=== PATIENT | female | born 1995 | race Two or more races ===

== ENCOUNTER 2018-01-25 05:04 | Emergency (ER) | payer OTHER ==
[~2018-01-25] VITALS: Ht 160 cm; Wt 44.5 kg
--- NOTE | 2018-01-25 05:19 | NUR ---
Pt bib [employer] in custody for c/o VB x today, 8 wks EGP, A0. pt AOx4, afebrile w/ resp even & unlabored, denies any pain, lmp irregular, report having IUD. Dr. Nathan at bedside for further eval. [employer] continue to be at bedside.
--- NOTE | 2018-01-25 05:23 | NUR ---
production control technologist at bedside for blood draw.
[2018-01-25 05:36] LABS: BASOPHILS % (AUTO) 0.6 % (0.0-2.0); EOSINOPHILS % (AUTO) 1.3 % (0.0-6.0); HEMATOCRIT 40 % (33-45); HEMOGLOBIN 13.6 g/dL (11.5-14.8); LYMPHOCYTES # (AUTO) 1.7 /CMM (0.8-4.8); LYMPHOCYTES % (AUTO) 24.1 % (20.0-44.0); MEAN CORPUSCULAR HGB CONC 34 g/dl (31.0-36.0); MEAN CORPUSCULAR VOLUME 87 fL (82-100); MONOCYTES # (AUTO) 0.4 /CMM (0.1-1.30); MONOCYTES % (AUTO) 5.8 % (2.0-12.0); NEUTROPHILS # (AUTO) 4.9 /CMM (1.8-8.9); NEUTROPHILS % (AUTO) 68.2 % (43.0-81.0); PLATELET COUNT (AUTO) 290 /CMM (150-450); RED BLOOD CELL COUNT(AUTO) 4.59 MIL/uL (4.0-5.2); WHITE BLOOD COUNT (AUTO) 7.2 K/uL (4.3-11.0)
--- NOTE | 2018-01-25 05:39 | NUR ---
Pt escorted to restroom by [employer], ambulatory w/ steady gait, urine obtained & sent to lab.
[2018-01-25 06:01] LABS: APPEARANCE,URINE CLEAR (CLEAR); BILIRUBIN,URINE NEGATIVE (NEGATIVE); BLOOD, URINE 2+ Ery/uL (NEGATIVE); COLOR,URINE YELLOW (YELLOW); KETONES,URINE 1+ (NEGATIVE); LEUKOCYTE ESTERASE ,URINE NEGATIVE (NEGATIVE); NITRITE, URINE NEGATIVE (NEGATIVE); PROTEIN,URINE TRACE mg/dl (NEGATIVE); UGLUCOSE NEGATIVE (NEGATIVE); UROBILINOGEN,URINE 0.2 EU/dL (0.2)
[2018-01-25 06:07] LABS: BACTERIA,URINE Few /HPF (None Seen); MUCUS,URINE Few /LPF (None Seen); SQUAMOUS EPITHELIAL CELL,UR Few /HPF (None Seen)
--- NOTE | 2018-01-25 06:40 | NUR ---
pt medically cleared and OK to book by MD. Pt resp even & unlabored, ambulatory w/ steady gait w/ nad noted. Patient discharged to [employer] custody in stable condition. Written and verbal after care instructions given. Patient verbalizes understanding of instruction.
[2018-01-25 06:42] VITALS: BP 124/78
== END 2018-01-25 06:42 ==
LOC: ER 05:05
DX: O20.8 Other hemorrhage in early pregnancy (principal); Z88.0 Allergy status to penicillin; Z3A.08 8 weeks gestation of pregnancy
CPT/HCPCS: 36415; 81001; 84702; 85025; 86850; 87077; 87086; 99283; A4606; Z7610; 81000-TC